=== PATIENT | female | born 1945 | race Hispanic/Latino ===

== ENCOUNTER 2018-05-03 09:28 | Day surgery (SDC) | payer MEDICARE, BC ==
[2018-04-13 13:15] VITALS: BMI 21.2
[2018-05-03] MEDS ORDERED: Propofol 10 mg/ml Inj (20 ML) ONE ×2 (11:40→11:52)
[2018-05-03 12:39] VITALS: TEMP 97.7
[2018-05-03] MEDS ORDERED: Sodium Chloride 0.9% 1,000 ML IV SCH (13:00)
[2018-05-03 13:23] VITALS: BP 122/64; PULSE 81; RESP 16; O2SAT 100
== END 2018-05-03 13:54 | disposition home or self-care (01) ==
LOC: ENDO 09:28
PROVIDERS: ATTEND Internal Medicine Gastroenterology
DX: D50.9 Iron deficiency anemia, unspecified (principal); D12.7 Benign neoplasm of rectosigmoid junction; K57.30 Diverticulosis of large intestine without perforation or abscess without bleeding; K64.8 Other hemorrhoids; K20.9 Esophagitis, unspecified; K44.9 Diaphragmatic hernia without obstruction or gangrene; K22.2 Esophageal obstruction; K25.9 Gastric ulcer, unspecified as acute or chronic, without hemorrhage or perforation; K29.50 Unspecified chronic gastritis without bleeding; Z12.11 Encounter for screening for malignant neoplasm of colon; I10 Essential (primary) hypertension; E78.5 Hyperlipidemia, unspecified; E78.00 Pure hypercholesterolemia, unspecified; Z90.49 Acquired absence of other specified parts of digestive tract; Z88.2 Allergy status to sulfonamides; Z80.0 Family history of malignant neoplasm of digestive organs; Z79.82 Long term (current) use of aspirin
CPT/HCPCS: 43239; 45385; 88305; 88342; J2704; J7030; J7040

== ENCOUNTER 2018-09-12 06:47 | Day surgery (SDC) | payer MEDICARE ==
[2018-09-08 10:50] VITALS: BMI 20.4
[2018-09-12] MEDS ORDERED: Propofol 10 mg/ml Inj (20 ML) ONE (09:25)
[2018-09-12] MEDS ORDERED: Sodium Chloride 0.9% 1,000 ML IV SCH (09:45)
[2018-09-12 11:55] VITALS: BP 127/78; PULSE 80; RESP 18; TEMP 98.1; O2SAT 97
== END 2018-09-12 11:05 | disposition home or self-care (01) ==
LOC: ENDO 06:47
PROVIDERS: ATTEND Internal Medicine Gastroenterology
DX: K29.50 Unspecified chronic gastritis without bleeding (principal); K22.2 Esophageal obstruction; K44.9 Diaphragmatic hernia without obstruction or gangrene; D50.9 Iron deficiency anemia, unspecified; I10 Essential (primary) hypertension
CPT/HCPCS: 43239; 88305; 88312; 88342; J2001; J2704; J7030